=== PATIENT | male | born 1935 | race Caucasian/White ===

== ENCOUNTER 2022-08-09 15:02 | Emergency (ER) | payer MEDICARE ==
[~2022-08-09] VITALS: Ht 182.9 cm; Wt 81.6 kg
[2022-08-09] MEDS ORDERED: AMLO-212 PO (15:18)
[2022-08-09] MEDS ORDERED: CARV12.52 PO (15:18)
[2022-08-09] MEDS ORDERED: ANAS1TAB50 PO (15:18)
--- NOTE | 2022-08-09 15:18 | NUR ---
Pt seen by MD for bedside eval. Safety measures in place. Will continue to monitor.
[2022-08-09] MEDS ORDERED: MEMA5TAB42 PO (15:19)
[2022-08-09] MEDS ORDERED: TAMS-3 (15:19)
[2022-08-09] MEDS ORDERED: MECLIZINE HCL 25 MG TABLET PO ONE (15:30)
[2022-08-09] MEDS ORDERED: MORPHINE SULFATE 2 MG/1 ML DISP.SYRIN IM ONE (15:30)
[2022-08-09] MEDS ORDERED: MECLIZINE HCL 25 MG TABLET ONE (16:01)
[2022-08-09] MEDS ORDERED: MORPHINE SULFATE 4 MG/1 ML DISP.SYRIN ONE (16:01)
[2022-08-09 16:05] LABS: HEMATOCRIT 44.6 % (36.7-47.1); MEAN CORPUSCULAR VOLUME 94.6 fL (73.0-96.2); PLATELET COUNT (AUTO) 112 K/uL (152-348)
[2022-08-09 16:06] LABS: CARBON DIOXIDE 29 mmol/L (21-32); CHLORIDE 103 mmol/L (98-107); CREATININE 2.5 mg/dL (0.6-1.3); GLUCOSE 128 mg/dL (74-106); POTASSIUM 4.3 mmol/L (3.5-5.1); UREA NITROGEN, BLOOD 34 mg/dL (7-18)
[2022-08-09 16:15] LABS: ALANINE AMINOTRANSFERASE 14 U/L (16-63); ALKALINE PHOSPHATASE 90 U/L (50-136); ASPARTATE AMINOTRANSFERASE 11 U/L (15-37); BILIRUBIN,DIRECT 0.2 mg/dL (0.0-0.2); BILIRUBIN,TOTAL 0.7 mg/dL (0.2-1.0); TOTAL PROTEIN, SERUM 6.9 g/dL (6.4-8.2)
[2022-08-09] MEDS ORDERED: HYDR-3972 PO (18:00)
[2022-08-09] MEDS ORDERED: MECL-159 PO (18:00)
[2022-08-09 18:55] VITALS: BP 138/70
--- NOTE | 2022-08-09 18:55 | NUR ---
Patient discharged to home in stable condition. Written and verbal after care instructions given. Patient verbalizes understanding of instructions. Stressed follow up or return to ER for worsening s/s.
== END 2022-08-09 18:56 | disposition home or self-care (01) ==
LOC: ER 15:02
DX: M54.50 Low back pain, unspecified (principal); R42 Dizziness and giddiness; R07.89 Other chest pain; Z79.899 Other long term (current) drug therapy
CPT/HCPCS: 99285; 70450; 71045; 80076; 80048; 85025; 84484 ×2; 36415; 93005; 72100; 96372; J2270; A4663; J8597